=== PATIENT | male | born 2000 | race Caucasian/White ===

== ENCOUNTER 2024-06-13 14:07 | Emergency (ER) | payer MEDICAID ==
[~2024-06-13] VITALS: Ht 175.2 cm; Wt 77.1 kg
[2024-06-13 15:38] LABS: BASO # 0.1 10*3/uL (0.0-0.1); BASO % 0.5 % (0.0-1.0); EOS # 0.1 10*3/uL (0.0-0.4); EOS % 0.6 % (1.0-4.0); HEMATOCRIT 43.7 % (42.0-52.0); LYMPH # 1.8 10*3/uL (1.3-4.4); LYMPH % 16.6 % (27.0-41.0); MEAN CELL VOLUME 87.2 fl (80.0-94.0); MEAN CORPUSCULAR HGB 31.1 pg (27.0-31.0); MEAN CORPUSCULAR HGB CONC 35.7 g/dl (33.0-37.0); MEAN PLATELET VOLUME 10.1 fl (9.6-12.3); MONO # 0.7 10*3/uL (0.1-1.0); MONO % 6.4 % (3.0-9.0); NEUT # 8.1 10*3/uL (2.3-7.9); NEUT % 75.4 % (47.0-73.0); PLATELET COUNT AUTOMATED 286 10*3/uL (130-400); RED BLOOD COUNT 5.01 10*6/uL (4.50-5.90); RED CELL DISTRI WIDTH 12.4 % (0-14.5); WHITE BLOOD COUNT 10.8 10*3/uL (4.8-10.8)
[2024-06-13] MEDS ORDERED: SODIUM CHLORIDE 0.9% 1,000 ML IV ONE (15:50)
[2024-06-13 15:51] LABS: BILIRUBIN Negative (Negative); BLOOD Negative (Negative); CLARITY Turbid (Clear); COLOR Yellow (Yellow); GLUCOSE Negative (Negative); KETONE 2+ (Negative); LEUKO ESTERASE Negative (Negative); NITRITE Negative (Negative); SPECIFIC GRAVITY 1.025 (1.001-1.030)
[2024-06-13 15:53] LABS: PH 8.5 (4.5-8.0)
[2024-06-13 15:56] LABS: ALKALINE PHOSPHATASE 82 U/L (46-116); BUN 11 mg/dl (9-23); CHLORIDE 105 mmol/L (98-107); CPK 199 U/L (34-171); ETHYL ALCOHOL < 3.0 mg/dl (<3); LIPASE 25 U/L (12-53); POTASSIUM 3.2 mmol/L (3.4-5.1); SGPT/ALT 17 U/L (5-49); TOTAL PROTEIN 7.9 gm/dL (6.0-8.0)
[2024-06-13 15:57] LABS: URINE AMPHETAMINES Negative (1000ng/ml); URINE BARBITURATES Negative (200ng/ml); URINE BENZODIAZEPINES Negative (200ng/ml); URINE CANNABINOIDS (THC) Positive (50ng/ml); URINE COCAINE Negative (300ng/ml); URINE METHADONE Negative (300ng/ml); URINE OPIATES Negative (300ng/ml); URINE PHENCYCLIDINE Negative (25ng/ml)
[2024-06-13 16:00] LABS: ACT PARTIAL THROMBO TIME 27.3 SECONDS (20.0-32.1)
[2024-06-13 16:03] LABS: BACTERIA 1+; RBC 0-2 rbc/hpf (0-2)
[2024-06-13] MEDS ORDERED: POTASSIUM CHLORIDE 20 MEQ TAB PO ONE (16:10)
[2024-06-13] MEDS ORDERED: CIPRO500 MG PO (16:19)
== END 2024-06-13 16:39 | disposition home or self-care (01) ==
LOC: ED 14:07
PROVIDERS: Internal Medicine
DX: E87.6 Hypokalemia (principal); N39.0 Urinary tract infection, site not specified; R42 Dizziness and giddiness; R25.2 Cramp and spasm